=== PATIENT | female | born 1945 | race Caucasian/White ===

== ENCOUNTER 2020-02-02 14:42 | Emergency (ER) | payer OTHER ==
[~2020-02-02] VITALS: Ht 170.2 cm; Wt 124.7 kg
--- NOTE | ~2020-02-02 | EKG ---
[facility] [place] [address] ELECTROCARDIOGRAM REPORT Name: RANDAL GURROLA Room #: REG [facility]#: [id number] Admission: 02/02/20 Attend Phys: Discharge: Date of : 43 Report #: [id number] THIS REPORT FOR: cc: Michaelle Travis MD, Stephanie F. 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
[2020-02-02 17:02] LABS: ABSOLUTE NEUTROPHILS 10.5 thou/uL (1.4-8.2); BASOPHILS 0.4 % (0.0-2.0); HEMATOCRIT 44.9 % (37.0-47.0); HEMOGLOBIN 14.7 gm/dL (12.0-15.0); LYMPHOCYTES 5.4 % (24.0-44.0); MCH 30.9 pg (26.0-34.0); MCHC 32.8 g/dL (28.0-37.0); MCV 94.4 fL (80.0-100.0); MONOCYTES 1.5 % (1.0-8.0); PLATELET COUNT 266 thou/uL (150-400); POLYS 92.7 % (36.0-66.0); RBC 4.76 mil/uL (4.20-5.00); RDW 14.7 % (10.5-14.5); WBC 11.4 thou/uL (4.0-11.0)
[2020-02-02 17:14] LABS: CALCIUM 9.1 mg/dL (8.5-10.1); CREATININE 1.5 mg/dL (0.6-1.0); POTASSIUM 4.6 mmol/L (3.5-5.1)
[2020-02-02] MEDS ORDERED: JANUVIA100 MG PO (18:40)
[2020-02-02] MEDS ORDERED: ACTOPLUS MET 11 EACH PO (18:40)
[2020-02-02] MEDS ORDERED: LEXAPRO20 MG PO (18:41)
[2020-02-02] MEDS ORDERED: LANTUS SUBQ ×2 (18:41→18:45)
[2020-02-02] MEDS ORDERED: LISINOPRIL20 MG PO ×2 (18:41→18:45)
[2020-02-02] MEDS ORDERED: VOLTAREN GEL 1100 G1 TOP (18:42)
[2020-02-02] MEDS ORDERED: NORVASC5 MG PO ×2 (18:42→18:45)
[2020-02-02 20:10] VITALS: BP 118/57
[2020-02-02] MEDS ORDERED: VALIUM2 MG PO (20:40)
== END 2020-02-02 20:50 | disposition home or self-care (01) ==
LOC: ER 14:42
PROVIDERS: Emergency Medicine
DX: H81.10 Benign paroxysmal vertigo, unspecified ear (principal); E11.65 Type 2 diabetes mellitus with hyperglycemia; I10 Essential (primary) hypertension; E03.9 Hypothyroidism, unspecified; J45.909 Unspecified asthma, uncomplicated; Z90.710 Acquired absence of both cervix and uterus; Z90.89 Acquired absence of other organs; Z79.899 Other long term (current) drug therapy; Z88.0 Allergy status to penicillin; Z88.2 Allergy status to sulfonamides; Z88.8 Allergy status to other drugs, medicaments and biological substances

== ENCOUNTER → 2020-06-19 | Outpatient (CLI) | payer OTHER ==
[~2020-06-19] MED LIST: ACTOPLUS MET 11 EACH PO; JANUVIA100 MG PO; LANTUS SUBQ; LEXAPRO20 MG PO; LISINOPRIL20 MG PO; NORVASC5 MG PO; VALIUM2 MG PO; VOLTAREN GEL 1100 G1 TOP
== END ==
LOC: RAD 13:31
PROVIDERS: ATTEND Internal Medicine
DX: R06.00 Dyspnea, unspecified (principal); M41.84 Other forms of scoliosis, thoracic region; M19.011 Primary osteoarthritis, right shoulder